=== PATIENT | male | born 1985 | race Caucasian/White ===

== ENCOUNTER 2022-04-27 23:40 | Emergency (ER) | payer MEDICAID ==
[~2022-04-27] VITALS: Ht 188 cm; Wt 77.3 kg
[2022-04-28] MEDS ORDERED: thiamine 100mg/ml 2ml inj. IV ONE (00:15)
[2022-04-28] MEDS ORDERED: ondansetron/PF 4mg/2ml inj IV ONE (00:15)
[2022-04-28] MEDS ORDERED: normal saline 1000ML IV soln IVB ONE (00:15)
[2022-04-28 00:58] LABS: BASOPHILS % (AUTO) 0.4 % (0-1); EOSINOPHILS # (AUTO) 0.1 X10'3 (0-0.9); HEMATOCRIT 46.1 % (42.0-52.0); HEMOGLOBIN 16.2 g/dl (14.0-17.9); LYMPHOCYTES # (AUTO) 3.2 X10'3 (1.1-4.8); LYMPHOCYTES % (AUTO) 46.4 % (21-51); MEAN CORPUSCULAR HGB CONC 35.1 g/dL (33.0-36.5); MEAN CORPUSCULAR VOLUME 85.6 FL (78-98); MEAN PLATELET VOLUME 6.9 FL (7.4-10.4); MONOCYTES # (AUTO) 0.3 X10'3 (0-0.9); MONOCYTES % (AUTO) 4.5 % (2-12); NEUTROPHILS # (AUTO) 3.3 X10'3 (1.8-7.7); NEUTROPHILS % (AUTO) 47.7 % (42-75); PLATELET COUNT 234 X10'3 (140-440); RED BLOOD COUNT 5.39 X10'6 (4.70-6.10); WHITE BLOOD COUNT 6.9 X10'3 (4.5-11.0)
[2022-04-28 01:04] LABS: ALANINE AMINOTRANSFERASE 51 U/L (12-78); ALBUMIN 4.6 G/DL (3.4-5.0); ALBUMIN/GLOBULIN RATIO 1.3 (1.1-1.5); ALKALINE PHOSPHATASE 65 IU/L (46-116); ANION GAP 15 (8-16); ASPARTATE AMINO TRANSFERASE 54 U/L (10-37); BILIRUBIN,TOTAL 1.5 MG/DL (0.1-1.0); BLOOD UREA NITROGEN 10 MG/DL (7-18); BUN/CREATININE RATIO 11.6 (5.4-32.0); CALCIUM 8.8 MG/DL (8.5-10.1); CHLORIDE 104 MMOL/L (99-107); CREATININE 0.86 MG/DL (0.60-1.10); GLUCOSE 123 MG/DL (70-104); POTASSIUM 3.6 MMOL/L (3.5-5.1); SODIUM 144 MMOL/L (135-145); TOTAL CARBON DIOXIDE 25.2 MMOL/L (24-32); TOTAL PROTEIN 8.2 G/DL (6.4-8.2); eGFR > 90 ML/MIN
[2022-04-28 01:05] LABS: MAGNESIUM 2.2 MG/DL (1.5-2.4)
[2022-04-28] MEDS ORDERED: nicotine 21mg patch - 24 hr TD ONE (01:05)
[2022-04-28 01:13] LABS: ETHANOL 0.395 GM/DL (0.0-0.010)
[2022-04-28] MEDS ORDERED: CHLO25CA10 PO (01:28)
[2022-04-28 01:33] VITALS: BP 149/89
== END 2022-04-28 01:49 | disposition home or self-care (01) ==
LOC: ER 23:40
DX: F10.129 Alcohol abuse with intoxication, unspecified (principal); Z79.899 Other long term (current) drug therapy; Y90.9 Presence of alcohol in blood, level not specified
CPT/HCPCS: 36415; 80053; 80320; 83735; 85025; 96361; 96374; 96375; 99284; J2405; J3411; J7030

== ENCOUNTER → 2022-04-27 | Emergency (ER) | payer MEDICAID ==
[~2022-04-27] MED LIST: CHLO25CA10 PO
== END | disposition left against medical advice (07) ==
LOC: ER 20:19
DX: F10.129 Alcohol abuse with intoxication, unspecified (principal); Z53.21 Procedure and treatment not carried out due to patient leaving prior to being seen by health care provider; Y90.9 Presence of alcohol in blood, level not specified